=== PATIENT | male | born 1960 | race Caucasian/White ===

== ENCOUNTER 2024-02-22 10:42 | Emergency (ER) | payer OTHER ==
[~2024-02-22] VITALS: Ht 180.3 cm; Wt 90.9 kg
[2024-02-22 10:59] VITALS: BP 149/101; PULSE 107; RESP 18; TEMP 98.3; O2SAT 98
[2024-02-22 10:59] LABS: COVID AG,FIA SOURCE NASAL SWAB
[2024-02-22 11:47] LABS: INFLUENZA TYPE A NEGATIVE FOR TYPE A (NEGATIVE); INFLUENZA TYPE B NEGATIVE FOR TYPE B (NEGATIVE)
[2024-02-22 12:12] LABS: SARS-COV2 (COVID) ANTIGEN,FIA Positive (Negative)
[2024-02-22] MEDS: OXYMETAZOLINE HCL 0.05% 15 ML NASAL SPRAY NASAL ONE (12:33)
[2024-02-22] MEDS: ACETAMINOPHEN 500 MG TABLET PO ONE (12:33)
[2024-02-22] MEDS ORDERED: ACET-3385 PO (12:38)
== END 2024-02-22 13:27 | disposition home or self-care (01) ==
LOC: EMS 10:42
DX: U07.1 COVID-19 (principal); F17.210 Nicotine dependence, cigarettes, uncomplicated
CPT/HCPCS: 87804; 99283

== ENCOUNTER 2024-02-23 19:16 | Emergency (ER) | payer OTHER ==
[~2024-02-23] VITALS: Ht 182.9 cm; Wt 81.8 kg
[~2024-02-23 19:16] MED LIST: ACET-3385 PO
[2024-02-23 19:31] VITALS: BP 156/95; PULSE 110; RESP 20; TEMP 99.1; O2SAT 95
== END 2024-02-23 21:52 | disposition left against medical advice (07) ==
LOC: EMS 19:16
DX: U07.1 COVID-19 (principal); Z59.00 Homelessness unspecified; Z53.21 Procedure and treatment not carried out due to patient leaving prior to being seen by health care provider